=== PATIENT | female | born 1980 | race African-American/Black ===

== ENCOUNTER → 2019-06-04 | Outpatient (CLI) | payer BC, OTHER ==
[~2019-06-04] MED LIST: B12; CALCIUM; DEXL60CA5 PO; DIPH50CA; OMEP20CA6 PO; PANT40SU; PRD20T PO; RANI-10 PO; YAZ PO
--- NOTE | 2019-06-04 13:27 | Diagnostic Imaging Report ---
INDICATION: Routine screening. COMPARISON: No prior mammograms are available for comparison. This is a baseline mammogram. TECHNIQUE: 2-D and 3-D bilateral screening mammography was performed. The current study was also evaluated with a Computer Aided Detection (CAD) system. 3-D tomosynthesis was also performed and reviewed. FINDINGS: Both breasts are heterogeneously dense, limiting the sensitivity of mammography. No mass or malignant-appearing microcalcifications are seen. Axillae are unremarkable. IMPRESSION: No mammographic features suspicious for malignancy are identified. ACR BI-RADS Category 1: Negative. Result letter will be mailed to the patient. Note: At least 10% of breast cancer is not imaged by mammography. Dictated by: Dictated on workstation # [id number]
== END ==
LOC: RAD 10:36
PROVIDERS: ATTEND Nurse Practitioner Family
DX: Z12.31 Encounter for screening mammogram for malignant neoplasm of breast (principal)
CPT/HCPCS: 77067

== ENCOUNTER 2021-05-07 06:37 | Outpatient (CLI) | payer BC ==
[~2021-05-07] VITALS: Ht 157.5 cm; Wt 61.0 kg
== END 2021-05-07 10:05 ==
LOC: PREOP 06:37
PROVIDERS: ATTEND Surgery
DX: Z01.818 Encounter for other preprocedural examination (principal)

== ENCOUNTER 2021-05-12 11:50 | Day surgery (SDC) | payer BC ==
[~2021-05-12] VITALS: Ht 157.5 cm; Wt 61.0 kg
[2021-05-12] MEDS ORDERED: LACTATED RINGERS 1,000 ML IV STA (11:57)
--- NOTE | 2021-05-12 12:02 | Progress Note-Pre Operative ---
Pre-Operative Progress Note H&P Reviewed The H&P was reviewed, patient examined and no changes noted. Date Seen by Provider: May 12, 2021 Time Seen by Provider: 12:02 Date H&P Reviewed: May 12, 2021 Time H&P Reviewed: 12:02 Pre-Operative Diagnosis: blood in stool JACQUES ALONSO DO May 12, 2021 12:02
[2021-05-12] MEDS ORDERED: LACTATED RINGERS 1,000 ML IV ONE (12:04)
[2021-05-12 12:16] VITALS: BP 145/94
[2021-05-12] MEDS ORDERED: MIDAZOLAM 2 MG/2 ML (VERSED) VIAL ONE (13:23)
[2021-05-12] MEDS ORDERED: PROPOFOL INJECTION 50 ML IV ONE ×2 (13:23→13:59)
[2021-05-12 14:25] VITALS: BP 99/59
[2021-05-12 14:30] VITALS: BP 98/59
--- NOTE | 2021-05-12 14:31 | Anesthesia-General Post-Op ---
MAC Patient Condition Mental Status/LOC: Same as Preop Cardiovascular: Satisfactory Nausea/Vomiting: Absent Respiratory: Satisfactory Pain: Controlled Complications: Absent Post Op Complications Complications None Follow Up Care/Instructions Patient Instructions None needed. Anesthesiology Discharge Order Discharge Order Patient is doing well, no complaints, stable vital signs, no apparent adverse anesthesia problems. No complications reported per nursing. HARDEEP DUNLAP CRNA May 12, 2021 14:30
[2021-05-12 14:35] VITALS: BP 106/69
[2021-05-12 15:15] VITALS: BP 110/70
--- NOTE | 2021-05-13 00:44 | OPERATIVE REPORT ---
DATE OF SERVICE: 05/12/2021 PREOPERATIVE DIAGNOSIS: Blood in stools. POSTOPERATIVE DIAGNOSES: Questionable mass in cecum with submucosal lipoma, colon polyps, healed posterior anal fissure. PROCEDURE: Colonoscopy with hot biopsy polypectomy x11. SURGEON: Marcelino Haas DO ANESTHESIA: Per PROJECT CONTROLLER. ESTIMATED BLOOD LOSS: None. COMPLICATIONS: None. INDICATIONS: The patient is a 41-year-old female with bright red blood per rectum. She understands risks and benefits of procedure and wished to proceed with procedure. Consent was signed in the chart. DESCRIPTION OF PROCEDURE: The patient was taken to endoscopy suite, placed in left lateral recumbent position. Timeout was performed. Digital rectal exam was performed noting the appearance of a healed posterior anal fissure. No palpable polyps, masses or ulcerations. Scope was inserted in the rectum, advanced all the way to the cecum. Prep was adequate. Scope was then slowly retracted back in the cecum where the appendiceal orifice appears to be a submucosal mass or lipoma. Had some difficulty visualizing this. Scope was then slowly retracted back and encountering a polyp in the ascending colon, which hot biopsy polypectomy was performed. Polyps some of them appeared to have ulceration within the center of them, but one in the ascending colon, which hot biopsy polypectomy was performed. Scope was then continuously retracted back into the transverse colon where there were 5 polyps, which were present, which hot biopsy polypectomies were performed. Scope was then continuously retracted back into the descending colon, which 2 polyps were present, which hot biopsy polypectomy was performed. Endoscope was then continuously slowly retracted back into the sigmoid colon where another 3 polyps present, which hot biopsy polypectomy was performed. Scope was then continuously retracted back into the rectum where it was retroflexed noting no other pathology. Scope was returned to its normal position, slowly withdrawn until completely removed. The patient tolerated procedure well without any complications. She was taken to recovery room in stable condition. RECOMMENDATIONS: The patient will follow up on biopsy results and see what pathology is. We would recommend repeat colonoscopy in 6 to 12 months, likely depending upon pathology. The patient also with a questionable mass in the cecum where a submucosal lipoma. We would recommend further evaluation with CT scan with rectal contrast for further evaluation. We will arrange this outpatient. Further recommendations pending results of pathology and CT scan. Job ID: [id number] DocumentID: [id number] Dictated Date: 05/12/2021 16:48:20 Mechanical Assembler Date: 05/13/2021 00:44:06 Dictated By: DO SEGUNDO GO
== END 2021-05-12 15:20 | disposition home or self-care (01) ==
LOC: ENDO 11:50
PROVIDERS: ATTEND Surgery
DX: K63.5 Polyp of colon (principal); K63.89 Other specified diseases of intestine; K52.9 Noninfective gastroenteritis and colitis, unspecified; K92.1 Melena; K21.9 Gastro-esophageal reflux disease without esophagitis; Z82.49 Family history of ischemic heart disease and other diseases of the circulatory system
CPT/HCPCS: 84703; 88305

== ENCOUNTER 2021-05-30 10:13 | Emergency (ER) | payer BC ==
[~2021-05-30] VITALS: Ht 154 cm; Wt 62.0 kg
--- NOTE | 2021-05-30 10:30 | ED Chest Pain ---
General Chief Complaint: Chest Pain Stated Complaint: CHEST TIGHTNESS Source: patient Exam Limitations: no limitations History of Present Illness Date Seen by Provider: May 30, 2021 Time Seen by Provider: 10:30 Initial Comments Patient is a 41-year-old female who presents to the emergency department today with a chief complaint of substernal chest discomfort. Patient states that she and her family member were out doing their daily brisk walk when she had a hill dden onset of a heavy pressure-like discomfort associated with feelings of wanting to faint. She states they walk every day about 2 miles a day and she has never had this before. She states she felt a little short of breath but not nauseous or sweaty. The pain did not radiate. She states when they slowed their walk down the pain improved. She states by the time she got home the pain recurred and it was "severe". She took 1 baby aspirin at home and decided to come to the emergency department for evaluation. Patient has no history of smoking, was not raised by smokers. Does not have a history of hypertension or any family history of early coronary artery disease. She recently underwent colonoscopy and was found to have a "mass" that was biopsied by Dr. Haas. Her follow-up appointment is Tuesday at 9:45 AM. She does not know pathology at this point. She continues to have occasional bloody stools. She denies recent prolonged immobility or travel. No swelling in her legs or pain in her calves. No recent febrile illnesses, shortness of breath cough. She is Covid vaccinated. All other review of systems reviewed and negative except as stated. Timing/Duration: 1 hour Severity/Quality: moderate, pressure Location: substernal Radiation: no radiation Activities at Onset: activity Prior CP/Workup: no prior chest pain, no prior cardiac workup ASA po SOILS ANALYST: Yes (one 81mg) Associated Symptoms: syncope (near syncopal) Allergies and Home Medications Allergies Coded Allergies: sod ferric gluc complex (Verified Allergy, Severe, HIVES, 01/08/13) HIVES, ABD PAIN, SOB sucrose (Verified Allergy, Severe, HIVES, 01/08/13) HIVES, ABD PAIN, SOB pantoprazole sodium (Verified Allergy, Intermediate, 06/22/12) swelling ranitidine HCl (Verified Allergy, Intermediate, 06/22/12) swelling Patient Home Medication List Home Medication List Reviewed: Yes No Active Prescriptions or Reported Meds Review of Systems Review of Systems Constitutional: see HPI EENTM: No Symptoms Reported Respiratory: SOA With Exertion Cardiovascular: Chest Pain Gastrointestinal: Other (occasional bloody stool) Genitourinary: No Symptoms Reported Musculoskeletal: no symptoms reported Skin: no symptoms reported Psychiatric/Neurological: No Symptoms Reported All Other Systems Reviewed Negative Unless Noted: Yes Past Wlfbwov-Frvwrz-Ygrwet Hx Immunizations Up To Date First/Initial COVID19 Vaccinat: YES Second COVID19 Vaccination Graham: YES Seasonal Allergies Seasonal Allergies: No Past Medical History Surgeries: Yes (ENDOSCOPY) Respiratory: No Cardiac: No Neurological: No Reproductive Disorders: No Genitourinary: No Gastrointestinal: No Gastroesophageal Reflux Musculoskeletal: No Endocrine: No HEENT: No Cancer: No Psychosocial: No Integumentary: No Blood Disorders: Yes (anemia) Family Medical History No Pertinent Family Hx Physical Exam Vital Signs Vital Signs - First Documented 05/30/21 10:15 Temp 36.3 Pulse 69 Resp 16 B/P (MAP) 138/91 (107) Pulse Ox 98 O2 Delivery Room Air Capillary Refill : Height, Weight, BMI Height: '" Weight: 100lbs. oz. 45.718154wy; 24.59 BMI Method:Stated General Appearance: No Apparent Distress, WD/WN HEENT: PERRL/EOMI Neck: Normal Inspection Respiratory: Lungs Clear, Normal Breath Sounds, No Accessory Muscle Use, No Respiratory Distress Cardiovascular: Regular Rate, Rhythm, Normal Peripheral Pulses Gastrointestinal: Non Tender, Soft Extremity: Normal Inspection, Normal Range of Motion, Non Tender, No Calf Tenderness Neurologic/Psychiatric: Alert, Oriented x3, No Motor/Sensory Deficits, Normal Mood/Affect Skin: Normal Color, Warm/Dry Progress/Results/Core Measures Results/Orders Lab Results Laboratory Tests Test 05/30/21 10:28 Range/Units White Blood Count 5.8 4.3-11.0 10^3/uL Red Blood Count 4.39 3.80-5.11 10^6/uL Hemoglobin 12.2 11.5-16.0 g/dL Hematocrit 37 35-52 % Mean Corpuscular Volume 85 80-99 fL Mean Corpuscular Hemoglobin 28 25-34 pg Mean Corpuscular Hemoglobin Concent 33 32-36 g/dL Red Cell Distribution Width 13.4 10.0-14.5 % Platelet Count 302 130-400 10^3/uL Mean Platelet Volume 10.7 9.0-12.2 fL Immature Granulocyte % (Auto) 0 % Neutrophils (%) (Auto) 31 L 42-75 % Lymphocytes (%) (Auto) 57 H 12-44 % Monocytes (%) (Auto) 10 0-12 % Eosinophils (%) (Auto) 1 0-10 % Basophils (%) (Auto) 1 0-10 % Neutrophils # (Auto) 1.8 1.8-7.8 10^3/uL Lymphocytes # (Auto) 3.3 1.0-4.0 10^3/uL Monocytes # (Auto) 0.6 0.0-1.0 10^3/uL Eosinophils # (Auto) 0.1 0.0-0.3 10^3/uL Basophils # (Auto) 0.0 0.0-0.1 10^3/uL Immature Granulocyte # (Auto) 0.0 0.0-0.1 10^3/uL Neutrophils % (Manual) 25 % Lymphocytes % (Manual) 56 % Monocytes % (Manual) 10 % Eosinophils % (Manual) 3 % Basophils % (Manual) 1 % Myelocytes % 1 % Atypical Lymphocytes 2 % Blast Cells 2 % Anisocytosis SLIGHT Macrocytosis SLIGHT Sodium Level 140 135-145 MMOL/L Potassium Level 3.6 3.6-5.0 MMOL/L Chloride Level 105 98-107 MMOL/L Carbon Dioxide Level 23 21-32 MMOL/L Anion Gap 12 5-14 MMOL/L Blood Urea Nitrogen 6 L 7-18 MG/DL Creatinine 0.68 0.60-1.30 MG/DL Estimat Glomerular Filtration Rate 114 BUN/Creatinine Ratio 9 Glucose Level 89 70-105 MG/DL Calcium Level 9.4 8.5-10.1 MG/DL Total Creatine Kinase 56 29-168 U/L Troponin I < 0.028 <0.028 NG/ML Smear Scan YES My Orders Orders - VARUN MCKEON MD Aspirin Chewable Tablet (Baby Aspirin Ch (05/31/21 09:00) Ed Iv/Invasive Line Start (05/30/21 10:41) Cbc With Automated Diff (05/30/21 10:41) Basic Metabolic Panel (05/30/21 10:41) Creatine Kinase (05/30/21 10:41) Troponin I (05/30/21 10:41) Chest 1 View, Ap/Pa Only (05/30/21 10:41) Ekg Tracing (05/30/21 10:41) Aspirin Chewable Tablet (Baby Aspirin Ch (05/30/21 11:10) Manual Differential (05/30/21 10:28) Troponin I (05/30/21 14:30) General/Regular (05/30/21 Lunch) Troponin I (05/30/21 14:36) Troponin I (05/30/21 14:37) Vital Signs/I&O 05/30/21 10:15 Temp 36.3 Pulse 69 Resp 16 B/P (MAP) 138/91 (107) Pulse Ox 98 O2 Delivery Room Air Progress Progress Note : Time: 13:15 Progress Note reevaluation of patient, resting comfortable, no immediate needs/concerns. chest discomfort completely resolved. awaiting repeat troponin to be drawn in 1 hour. patient asking to eat. will go ahead and order a lunch tray as I expect negative troponin and no trips to the pathology laboratory director. Initial ECG Impression Date: May 30, 2021 Initial ECG Impression Time: 10:28 Initial ECG Rate: 57 Initial ECG Rhythm: Normal Sinus Initial ECG Intervals: Normal Initial ECG Impression: Nonspecific Changes (anterior/inferior) Departure Impression Primary Impression: Chest pain Qualified Codes: R07.9 - Chest pain, unspecified Disposition: 01 HOME, SELF-CARE Condition: Stable Departure-Patient Inst. Decision time for Depature: 14:38 Referrals: [facility] [place],LOCAL PHYSICIAN (PCP) Primary Care Physician Patient Instructions: Chest Pain That Is Not Caused by the Heart (DC), LOCAL PHYSICIAN LIST Add. Discharge Instructions: You can try some over the counter Tums for any chest discomfort/pressure that recurs. Also if you have recurrent "heartburn" type symptoms, you can start taking an over the counter acid certified neurodiagnostic technologist such as prilosec or pepcid. please keep your appointment with Dr Haas for Tuesday. Come back to the Emergency Department if you develop any new, concerning or emergent symptoms. Scripts No Active Prescriptions or Reported Meds VARUN MCKEON MD May 30, 2021 10:30
[2021-05-30 10:49] LABS: BASOPHILS % (AUTO) 1 % (0-10); EOSINOPHILS # (AUTO) 0.1 10^3/uL (0.0-0.3); EOSINOPHILS % (AUTO) 1 % (0-10); HEMATOCRIT 37 % (35-52); HEMOGLOBIN 12.2 g/dL (11.5-16.0); LYMPHOCYTES # (AUTO) 3.3 10^3/uL (1.0-4.0); LYMPHOCYTES % (AUTO) 57 % (12-44); MEAN CORPUSCULAR HEMOGLOBIN 28 pg (25-34); MEAN CORPUSCULAR HGB CONC 33 g/dL (32-36); MEAN CORPUSCULAR VOLUME 85 fL (80-99); MEAN PLATELET VOLUME 10.7 fL (9.0-12.2); MONOCYTES # (AUTO) 0.6 10^3/uL (0.0-1.0); MONOCYTES % (AUTO) 10 % (0-12); NEUTROPHILS # (AUTO) 1.8 10^3/uL (1.8-7.8); NEUTROPHILS % (AUTO) 31 % (42-75); PLATELET COUNT 302 10^3/uL (130-400); WHITE BLOOD COUNT 5.8 10^3/uL (4.3-11.0)
[2021-05-30 10:52] LABS: CHLORIDE 105 MMOL/L (98-107); POTASSIUM 3.6 MMOL/L (3.6-5.0); SODIUM 140 MMOL/L (135-145)
[2021-05-30 10:53] LABS: CALCIUM 9.4 MG/DL (8.5-10.1); GLUCOSE 89 MG/DL (70-105); SMEAR SCAN COMMENT YES
[2021-05-30 10:55] LABS: CARBON DIOXIDE 23 MMOL/L (21-32)
[2021-05-30 10:57] LABS: CREATININE SERUM 0.68 MG/DL (0.60-1.30); GFR ESTIMATED 114
[2021-05-30 10:58] LABS: BUN/CREATININE RATIO 9
[2021-05-30 11:00] LABS: CREATINE KINASE 56 U/L (29-168)
[2021-05-30] MEDS ORDERED: ASPIRIN 81 MG CHEW (CHILDREN'S ASA) ONE (11:10)
--- NOTE | 2021-05-30 11:18 | Diagnostic Imaging Report ---
INDICATION: Chest pain today. TECHNIQUE: Single view chest 11:19 AM. CORRELATION STUDY: None FINDINGS: The heart size, mediastinal configuration and pulmonary vascularity are within normal limits. The lungs are clear with no consolidating infiltrate. There is no significant effusion or pneumothorax. IMPRESSION: 1. Negative for acute abnormality of the chest. Dictated by: Dictated on workstation # [id number]
[2021-05-30 11:22] LABS: ANISOCYTOSIS SLIGHT; ATYPICAL LYMPHOCYTES 2 %; BASOPHILS % (MANUAL) 1 %; BLAST CELLS 2 %; EOSINOPHILS % (MANUAL) 3 %; LYMPHOCYTES % (MANUAL) 56 %; MONOCYTES % (MANUAL) 10 %; MYELOCYTES % 1 %; NEUTROPHILS % (MANUAL) 25 %
[2021-05-30 15:20] VITALS: BP 128/79
[2021-05-31] MEDS ORDERED: ASPIRIN 81 MG CHEW (CHILDREN'S ASA) PO SCH (09:00)
== END 2021-05-30 15:20 | disposition home or self-care (01) ==
LOC: EDUNIT# 10:13 → ER 10:15
DX: R07.9 Chest pain, unspecified (principal)
CPT/HCPCS: 36415; 71045; 80048; 82550; 84484; 85007; 85027; 93005

== ENCOUNTER → 2021-06-02 | Outpatient (CLI) | payer BC ==
[~2021-06-02] MED LIST changes: +DIATRIZOATE MEGLUM/SODIUM 37% 120 ML (GASTROGRAFIN) PO ONE
--- NOTE | 2021-06-02 10:18 | Diagnostic Imaging Report ---
EXAMINATION: CT abdomen and pelvis without contrast. TECHNIQUE: Multiple contiguous axial images were obtained through the abdomen and pelvis without the use of intravenous contrast. All CT scans use one or more of the following dose optimizing techniques: automated exposure control, MA and/or KvP adjustment based on patient size and exam type or iterative reconstruction. HISTORY: Rectal mass COMPARISON: None available. FINDINGS: Limited views of the lower thorax are unremarkable. The liver is normal without focal lesion. There is no biliary ductal dilation. Gallbladder is normal. Pancreas is normal. Spleen is normal. Adrenal glands are normal. The kidneys are normal. There is no hydronephrosis. Urinary bladder is normal. A rectal tube was placed and rectal contrast was administered. Filling defect in the rectum may represent the reported history of a mass versus stool. There are numerous filling defects throughout the colon making further evaluation of polyps or masses not possible. Incidental note is made of a dilated appendix measuring 15 mm with bulging of the appendiceal orifice. There is no surrounding stranding or fluid. There is no evidence for bowel obstruction or inflammation. No free fluid or air. No abdominal or pelvic lymphadenopathy. Aorta is normal in caliber without aneurysm. There are no suspicious osseus lesions. IMPRESSION: 1. Rectal contrast was administered and shows filling defects throughout the colon likely representing stool. Evaluation for additional polyps or masses is not possible due to the amount of stool in the colon. 2. Incidental note is made of a dilated appendix with bulging of the appendiceal orifice with no surrounding stranding or inflammation. 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 Dictated by: Dictated on workstation # [id number]
== END ==
LOC: RAD 09:45
PROVIDERS: ATTEND Surgery
DX: K62.89 Other specified diseases of anus and rectum (principal); K38.8 Other specified diseases of appendix
CPT/HCPCS: 74176

== ENCOUNTER 2021-06-04 23:49 | Emergency (ER) | payer BC ==
[~2021-06-04 23:49] MED LIST changes: -DIATRIZOATE MEGLUM/SODIUM 37% 120 ML (GASTROGRAFIN) PO ONE
[2021-06-05] MEDS ORDERED: methylPREDNISolone 125 MG (Solu-MEDROL) VIAL ONE (00:03)
[2021-06-05] MEDS ORDERED: methylPREDNISolone 125 MG (Solu-MEDROL) VIAL IV STA (00:04)
--- NOTE | 2021-06-05 00:14 | ED General ---
General Chief Complaint: Allergic Reaction Stated Complaint: ALLERGIC RXN Source of Information: Patient Exam Limitations: No Limitations (YOUNG ANDRE MD) History of Present Illness Date Seen by Provider: Jun 04, 2021 Time Seen by Provider: 23:57 Initial Comments Here with report of swelling of the upper lip. This started as a bump at about 5 PM and then worsened slightly. She took 2 Benadryl tabs at 9 PM. She subsequently had increased swelling of the upper lip. Of note she is on her second day of starting treatment for hypertension with lisinopril. She has never had treatment for blood pressure before. She had a similar reaction with ranitidine. Denies swelling of the tongue or breathing problems. She took the lisinopril this morning. Denies nausea, vomiting, weakness or stomach upset. Timing/Duration: 4-6 Hours Severity: Moderate Modifying Factors: worse with Medication Associated Systoms: No Cough, No Fever/Chills, No Headaches, No Nausea/Vomiting, No Shortness of Air, No Weakness (YOUNG ANDRE MD) Allergies and Home Medications Allergies Coded Allergies: ELTON Inhibitors (Verified Allergy, Severe, Angioedema, 06/05/21) sod ferric gluc complex (Verified Allergy, Severe, HIVES, 01/08/13) HIVES, ABD PAIN, SOB sucrose (Verified Allergy, Severe, HIVES, 01/08/13) HIVES, ABD PAIN, SOB pantoprazole sodium (Verified Allergy, Intermediate, 06/22/12) swelling ranitidine HCl (Verified Allergy, Intermediate, 06/22/12) swelling Patient Home Medication List Home Medication List Reviewed: Yes (YOUNG ANDRE MD) No Active Prescriptions or Reported Meds Review of Systems Review of Systems Constitutional: see HPI; No chills, No fever EENTM: mouth swelling (Upper lip); No throat pain, No throat swelling Respiratory: No cough, No short of breath, No wheezing Cardiovascular: no symptoms reported Gastrointestinal: see HPI Genitourinary: no symptoms reported Musculoskeletal: no symptoms reported Skin: see HPI; No pruritus, No rash; other (Swelling of the upper lip.) (YOUNG ANDRE MD) All Other Systems Reviewed Negative Unless Noted: Yes (YOUNG ANDRE MD) Past Iwkmtwm-Qqtqaf-Gtieoc Hx Patient Social History Tobacco Use?: No Use of E-Cig and/or Vaping dev: No Substance use?: No Alcohol Use?: Yes Alcohol Frequency: Once in a while (YOUNG ANDRE MD) Immunizations Up To Date First/Initial COVID19 Vaccinat: YES Second COVID19 Vaccination Graham: 12/31 (YOUNG ANDRE MD) Seasonal Allergies Seasonal Allergies: No (YOUNG ANDRE MD) Past Medical History Surgeries: Yes (ENDOSCOPY) Respiratory: No Cardiac: No Neurological: No Reproductive Disorders: No Genitourinary: No Gastrointestinal: No Gastroesophageal Reflux Musculoskeletal: No Endocrine: No HEENT: No Cancer: No Psychosocial: No Integumentary: No Blood Disorders: Yes (anemia) (YOUNG ANDRE MD) Family Medical History Reviewed Nursing Family Hx (YOUNG ANDRE MD) No Pertinent Family Hx (YOUNG ANDRE MD) Physical Exam Vital Signs Vital Signs - First Documented 06/04/21 23:55 Temp 36.1 Pulse 72 Resp 16 B/P (MAP) 147/93 (111) Pulse Ox 98 O2 Delivery Room Air (CARLTON PAVON MD) Vital Signs Capillary Refill : (YUONG ANDRE MD) Height, Weight, BMI Height: '" Weight: 100lbs. oz. 45.612295tl; 26.00 BMI Method:Stated General Appearance: No Apparent Distress, WD/WN HEENT: PERRL/EOMI, Pharynx Normal, Other (Upper lip swollen bilateral. No involvement of the tongue or pharynx noted.) Neck: Non Tender, Supple Respiratory: Lungs Clear, Normal Breath Sounds Cardiovascular: Regular Rate, Rhythm, No Murmur Gastrointestinal: Non Tender, Soft Extremity: Normal Range of Motion, Non Tender Neurologic/Psychiatric: Alert, Oriented x3 Skin: Normal Color, Warm/Dry (YOUNG ANDRE MD) Progress/Results/Core Measures Suspected Sepsis SIRS Temperature: Pulse: Respiratory Rate: Blood Pressure / Mean: (YOUNG ANDRE MD) Results/Orders My Orders Orders - CARLTON PAVON MD Tranexamic Acid Injection (Cyklokapron I (06/05/21 02:30) (CARLTON PAVON MD) Medications Given in ED Current Medications Medications Dose Ordered Sig/Sarita Route Start Time Stop Time Status Last Admin Dose Admin Methylprednisolone Sodium Succinate 125 mg STK-MED ONCE .ROUTE 06/05/21 00:03 06/05/21 00:05 DC 06/05/21 00:06 125 MG Tranexamic Acid 1000 mg/Sodium Chloride 110 ml @ 330 mls/hr ONCE ONCE IV 06/05/21 02:30 06/05/21 02:50 DC 06/05/21 02:25 330 MLS/HR (CARLTON PAVON MD) Vital Signs/I&O 06/04/21 06/04/21 06/05/21 23:55 23:55 04:03 Temp 36.1 36.1 Pulse 72 67 Resp 16 16 B/P (MAP) 147/93 (111) 128/84 Pulse Ox 98 98 O2 Delivery Room Air Room Air Room Air (CARLTON PAVON MD) Vital Signs/I&O Capillary Refill : (YOUNG ANDRE MD) Progress Note : Progress Note Seen and evaluated. IV established. Placed on monitor. Airway evaluated and shows no swelling. Appears to have ELTON inhibitor angioedema. We will initiate Solu-Medrol 125 mg IV and monitor patient. She is already had 50 mg of Benadryl 3 hours ago. Patient is allergic to ranitidine so we will hold famotidine. No indication for epinephrine at this point. We will monitor the patient to see if she has some resolution with time. This was discussed with the patient who agreed. Monitor patient. (YOUNG ANDRE MD) Progress Note : Time: 04:11 Progress Note I assumed care of this patient from Dr. Andre at 0030. She was stable at that time and had no airway or tongue involvement. She was monitored for a few hours and exhibited some slight increase in edema of the upper lip. There were still no involvement of the tongue, throat, or airway. At this point we elected to administer 1 g of tranexamic acid after discussing this therapy option with the patient. She has no history of clotting problems such as DVT or PE, and she felt comfortable receiving the TXA therapy. At 0400 she was exhibiting slight improvement in the lip swelling. There was still no tongue, throat, or airway involvement. Patient [place] [facility] in [facility] and feels comfortable returning home at this point. She has experienced with angioedema as she has had angioedema twice previously with Zantac. We discussed the need to avoid ELTON inhibitors in the future and list ELTON inhibitor's as an allergy. See discharge instructions for further discussion. 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 Decision time for Depature: 03:59 (CARLTON PAVON MD) Referrals: NO,LOCAL PHYSICIAN (PCP/Family) Primary Care Physician Patient Instructions: Angioedema Add. Discharge Instructions: Please return to the emergency room immediately or call 911 if you have worsening of your swelling that involves the tongue, throat, airway, or breathing. Never take any medication in the angiotensin converting enzyme inhibitor (ELTON inhibitor) category. This includes all of the medications that and in "-pril" such as lisinopril, enalapril, etc. Always list ELTON inhibitors as an allergy causing angioedema in your future healthcare encounters. Call with any questions or concerns. All discharge instructions reviewed with patient and/or family. Voiced understanding. Scripts No Active Prescriptions or Reported Meds YOUNG ANDRE MD Jun 05, 2021 00:14 CARLTON PAVON MD Jun 05, 2021 04:02
[2021-06-05] MEDS ORDERED: TRANEXAMIC ACID INJECTION 1,000 MG in NS (IVPB) 100 ML IV ONE (02:30)
[2021-06-05 04:03] VITALS: BP 128/84
== END 2021-06-05 04:17 | disposition home or self-care (01) ==
LOC: EDUNIT# 23:49 → ER 23:52
DX: T78.3XXA Angioneurotic edema, initial encounter (principal); I10 Essential (primary) hypertension; K21.9 Gastro-esophageal reflux disease without esophagitis
CPT/HCPCS: 96365

== ENCOUNTER 2021-06-24 07:02 | Outpatient (CLI) | payer BC ==
[~2021-06-24] VITALS: Ht 157.5 cm; Wt 58.9 kg
== END 2021-06-25 11:52 | disposition home or self-care (01) ==
LOC: PREOP 07:02
PROVIDERS: ATTEND Surgery
DX: Z01.818 Encounter for other preprocedural examination (principal)

== ENCOUNTER 2021-07-02 07:26 | Day surgery (SDC) | payer BC ==
[~2021-07-02] VITALS: Ht 157.5 cm; Wt 58.9 kg
[2021-07-02] VITALS (11 sets, daily range): BP systolic 128–154; BP diastolic 78–101
[2021-07-02] MEDS ORDERED: ceFAZolin INJECTION 1,000 MG in WATER (STERILE) FOR INJECTION 10 ML IV ONE (07:30)
[2021-07-02] MEDS ORDERED: metroNIDAZOLE 500MG/100ML IVPB 100 ML IV ONE (07:30)
[2021-07-02] MEDS ORDERED: LIDOCAINE/EPI 1%-1:100,000 (XYLOCAINE) 20ML ONE (07:40)
[2021-07-02] MEDS: LACTATED RINGERS 1,000 ML IV PRN ×2 (07:52→09:15)
--- NOTE | 2021-07-02 07:57 | Progress Note-Pre Operative ---
Pre-Operative Progress Note H&P Reviewed The H&P was reviewed, patient examined and no changes noted. Date Seen by Provider: Jul 02, 2021 Time Seen by Provider: 07:56 Date H&P Reviewed: Jul 02, 2021 Time H&P Reviewed: 07:57 Pre-Operative Diagnosis: dilated appendix, possible mucocele JACQUES ALONSO DO Jul 02, 2021 07:57
[2021-07-02] MEDS ORDERED: proPOfol 200 MG/20 ML (DIPRIVAN) VIAL IV ONE (08:31)
[2021-07-02] MEDS ORDERED: LIDOCAINE PF 2% 5 ML (XYLOCAINE) VIAL ONE (08:31)
[2021-07-02] MEDS ORDERED: fentaNYL INJ 100 MCG/2 ML AMP ONE (08:31)
[2021-07-02] MEDS ORDERED: MIDAZOLAM 2 MG/2 ML (VERSED) VIAL ONE (08:32)
[2021-07-02] MEDS ORDERED: ROCURONIUM 10 MG/ML 5 ML SYRINGE IV ONE (09:25)
[2021-07-02] MEDS ORDERED: NEOSTIGMINE 3 MG/3 ML VIAL ONE (09:25)
[2021-07-02] MEDS ORDERED: GLYCOPYRROLATE 0.2 MG/ML (ROBINUL) 2 ML VIAL ONE (09:25)
[2021-07-02] MEDS ORDERED: SEVOFLURANE (ULTANE) 15 ML INHAL SOLN ONE (09:25)
[2021-07-02] MEDS ORDERED: ONDANSETRON 4 MG/2 ML (SDV) Z0FRAN ONE ×2 (09:26→10:03)
--- NOTE | 2021-07-02 09:36 | Progress Note-Post Operative ---
Post-Operative Progess Note Surgeon (s)/Director Of Advertising Sales (s) Surgeon JACQUES ALONSO DO Director Of Advertising Sales: Dr. Venegas to assist in retraction dissection and closure. Pre-Operative Diagnosis dilated appendix, possible mucocele Post-Operative Diagnosis dilated appendix Procedure & Operative Findings Date of Procedure 07/02/21 Procedure Performed/Findings laparoscopic partial cecectomy Anesthesia Type general Estimated Blood Loss Estimated blood loss (mL): minimal Specimens/Packing Specimens Removed appendix and partial cecum JACQUES ALONSO DO Jul 02, 2021 09:36
[2021-07-02] MEDS ORDERED: ACHD5005 PO (09:37)
[2021-07-02] MEDS ORDERED: DOCU-143 PO (09:37)
--- NOTE | 2021-07-02 09:37 | Discharge Inst-Simple/Standard ---
Discharge Inst-Standard Discharge Medications New, Converted or Re-Newed RX: Transmitted to Pharmacy Patient Instructions/Follow Up Plan of Care/Instructions/FU: 2 weeks Samina Activity as Tolerated: No Discharge Diet: Regular Diet Other Inst to Patient Follow up Appt: Make appointment for 2 week. Instructions: No lifting greater than 10 pounds. No strenuous activity. May shower in 24 hours, no tub bath or soaking. Use incentive spirometer at home as directed. No Smoking Skin/Wound Care: You have special glue over your incision that will fall off on it's own. Symptoms to Report: Appetite Changes, Extremity Discoloration, Numbness/Tingling, Swelling Increased, Bleeding Excessive, Eyesight Changes, Pain Increased, Urine Color Change, Constipation(Persistent), Fever over 101 degree F, Pain/Pressure in chest, Urinating Difficulty, Cough Up/Vomit Blood, Heart Beat Irreg/Pounding, Pain/Pressure in jaw, Vaginal Bleeding Increase, Cramps in feet or legs, Lightheadedness, Pain/Pressure in shoulder, Diarrhea(Persistent), Memory Changes Suddenly, Questions/Concerns, Weight gain consecutive days, Dizziness/Fainting, Nausea/Vomiting, Shortness of Breath, Weight gain over 2 pounds If questions or concerns contact your physician Or seek help at emergency department. JACQUES ALONSO DO Jul 02, 2021 09:37
[2021-07-02] MEDS: fentaNYL INJ 100 MCG/2 ML AMP ONE ×2 (10:08→10:32)
[2021-07-02] MEDS ORDERED: ONDANSETRON 4 MG/2 ML (SDV) Z0FRAN IVP PRN (10:15)
[2021-07-02] MEDS ORDERED: fentaNYL INJ 100 MCG/2 ML AMP IVP ONE (10:15)
[2021-07-02] MEDS ORDERED: HYDROmorphone 2 MG/ML VIAL (DILAUDID) IV ONE (10:15)
--- NOTE | 2021-07-02 11:32 | OPERATIVE REPORT ---
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 PROCEDURE: Laparoscopic partial cecectomy. SURGEON: Marcelino Haas DO LIAISON OFFICER: Dr. Venegas, assisted in retraction, dissection and closure. ANESTHESIA: General. ESTIMATED BLOOD LOSS: Minimal. COMPLICATIONS: None. INDICATIONS: The patient is a 41-year-old female who had a colonoscopy, which had possible mass in the cecum visualized. She had a CT scan, which then demonstrated a CT scan with dilated appendix and possible mucocele at the cecum. The patient was recommended a partial cystectomy and all other indicated procedures so we could get pathological diagnosis. She understands risks and benefits and wishes to proceed. Consent was signed in the chart. DESCRIPTION OF PROCEDURE: The patient was taken to the operating suite, was prepped and draped in sterile fashion. Surgical pause was performed. Superior to the umbilicus, local anesthetic was infiltrated and 11 blade scalpel was used to make a small skin incision. Dissection was taken down to the fascia, which was then scored and opened. The abdomen was then entered. An 0 Vicryl was placed over in a [id number] fashion for closure at the end of the case. A balloon trocar was inserted, and pneumoperitoneum was achieved. Under direct visualization of the laparoscope, a 5 mm trocar was placed in the suprapubic region and the left lower quadrant. The appendix was then identified. It was dilated and appeared to be slightly extending into the cecum. The LigaSure was then used to divide the mesoappendix and start mobilizing the cecum. An Endo-ANJELICA 2.5 stapler was then used to transect partial of the cecum just proximal to the ileocecal valve. Once it was placed in an Endobag and removed through 12 mm trocar site. Abdomen was then inspected. No other pathology noted. The abdomen was then desufflated. Trocars were removed. The 0 Vicryl placed at the beginning of the case was then tied closing the 12 mm fascial defect. The skin was then closed using 4-0 Monocryl in a subcuticular fashion. The abdomen was washed and dried and Skin Affix was placed over the incisions. The patient tolerated procedure well without any complications, taken to recovery room in stable condition. Job ID: [id number] DocumentID: [id number] Dictated Date: 07/02/2021 09:42:07 Cut Off Operator Scorer Date: 07/02/2021 11:31:40 Dictated By: DO SEGUNDO GO
[2021-07-02] MEDS ORDERED: HYDROcodone/APAP 5 MG/325 MG (LORTAB) TAB PO ONE (11:45)
--- NOTE | 2021-07-02 14:16 | Anesthesia-General Post-Op ---
General Patient Condition Mental Status/LOC: Same as Preop Cardiovascular: Satisfactory Nausea/Vomiting: Absent Respiratory: Satisfactory Pain: Controlled Complications: Absent Post Op Complications Complications None Follow Up Care/Instructions Patient Instructions None needed. Anesthesia/Patient Condition Patient Condition Patient is doing well, no complaints, stable vital signs, no apparent adverse anesthesia problems. No complications reported per nursing. JODEE CORNEJO CRNA Jul 02, 2021 14:16
== END 2021-07-02 12:23 | disposition home or self-care (01) ==
LOC: SDC 07:26
PROVIDERS: ATTEND Surgery
DX: D12.1 Benign neoplasm of appendix (principal)
CPT/HCPCS: 84703; 87081

== ENCOUNTER → 2021-07-31 | Outpatient (CLI) | payer BC ==
[~2021-07-31] MED LIST changes: +ACHD5005 PO; +DOCU-143 PO
--- NOTE | 2021-07-31 11:39 | Diagnostic Imaging Report ---
PROCEDURE: CT abdomen and pelvis without contrast. TECHNIQUE: Multiple contiguous axial images were obtained through the abdomen and pelvis without the use of intravenous contrast. Auto Exposure Controls were utilized during the CT exam to meet ALARA standards for radiation dose reduction. INDICATION: Unspecified abdominal pain. Patient status post appendectomy one month ago. Comparison is made with prior CT from 06/02/2021. The lung bases are clear. Liver and gallbladder are unremarkable. The pancreas and spleen are unremarkable. No adrenal mass is detected. Kidneys are unremarkable. Aorta is nonaneurysmal. Postop changes from appendectomy are noted in the right lower quadrant. No fluid collection or abscess is identified. Bowel loops appear to be normal caliber. The uterus and bladder are unremarkable. No free air. No inflammatory changes are seen. IMPRESSION: Postoperative changes of appendectomy. No complicating features are identified. No acute features detected. Dictated by: Dictated on workstation # [id number]
== END ==
LOC: RAD 10:41
PROVIDERS: ATTEND Surgery
DX: R10.9 Unspecified abdominal pain (principal); Z90.49 Acquired absence of other specified parts of digestive tract
CPT/HCPCS: 74176

== ENCOUNTER → 2021-10-28 | Outpatient (CLI) | payer BC ==
--- NOTE | 2021-10-28 17:22 | Diagnostic Imaging Report ---
PROCEDURE: US Non-OB pelvis comp/trans. TECHNIQUE: Multiple real-time grayscale images were obtained of the pelvis in various projections endovaginally. Transabdominal imaging was also performed. INDICATION: Anemia. FINDINGS: The uterus measures 7.1 x 4.6 x 5.3 cm, retroverted, normal in size. The endometrial thickness is 8 mm, homogeneous and nonfocal. A 3.7 cm hypoechoic lesion with vascularity in the anterior uterine body is present as well as a similar 1.8 cm lesion eccentric to the right. Small fibroids are felt likely. No evidence for submucosal involvement. No pelvic free fluid. The ovaries and adnexa appeared normal. There is normal color Doppler blood flow. IMPRESSION: Probable uterine fibroids with no endometrial pathology. Normal ovaries and adnexa. No free fluid. Dictated by: Dictated on workstation # [id number]
--- NOTE | 2021-10-29 13:22 | Diagnostic Imaging Report ---
Bilateral screening mammogram. This study was compared to the prior exam of 06/04/2019. At this time there are no current complaints. The current study was also evaluated with a Computer Aided Detection (CAD) system. FINDINGS: The fibroglandular tissue in both breasts is dense. This does limit the sensitivity of this exam. Overall, there does not appear to have been any significant change when compared to the prior study. No primary or secondary sign of malignancy is noted. IMPRESSION: There is no radiographic evidence for malignancy. ACR category 1 ACR BI-RADS Category 1: Negative. Result letter will be mailed to the patient. Note: At least 10% of breast cancer is not imaged by mammography. Dictated by: Dictated on workstation # [id number]
== END ==
LOC: RAD 14:45
PROVIDERS: ATTEND Surgery
DX: Z12.31 Encounter for screening mammogram for malignant neoplasm of breast (principal); N93.8 Other specified abnormal uterine and vaginal bleeding
CPT/HCPCS: 76830; 76856; 77063; 77067

== ENCOUNTER 2022-04-01 19:34 | Emergency (ER) | payer BC ==
[~2022-04-01] VITALS: Ht 157.5 cm; Wt 62.0 kg
--- NOTE | 2022-04-01 20:02 | ED Chest Pain ---
General Chief Complaint: Respiratory Problems Stated Complaint: SOB, CHEST PRESSURE Nursing Triage Note: c/o soa/intermittant cp since 1734 Source: patient Exam Limitations: no limitations (CONCHA NAVARRO) History of Present Illness Date Seen by Provider: Apr 01, 2022 Time Seen by Provider: 20:00 Initial Comments Patient is a 42-year-old female who presents the ED with shortness of breath, dizziness and heart palpitations. Patient states symptoms started around 530 this evening while driving. Started having some dizziness and feeling short of breath. [place] like she was having difficulty catching her breath and may have had some heart palpitations. She states the chest pain was not sharp or felt like someone was set on her chest. No cough, fever, vomiting, diarrhea. She states she felt disoriented. Symptoms are improving. She Went home took 4 baby aspirin's around 615. History of hypertension. Denies history of coronary artery disease, CHF, asthma, COPD, smoking, diabetes, high cholesterol. No recent travels or surgeries. History of similar symptoms a year ago. Denies excessive caffeine use. Denies leg pain, leg swelling (CONCHA NAVARRO) Allergies and Home Medications Allergies Coded Allergies: ELTON Inhibitors (Verified Allergy, Severe, Angioedema, 06/05/21) sod ferric gluc complex (Verified Allergy, Severe, HIVES, 01/08/13) HIVES, ABD PAIN, SOB sucrose (Verified Allergy, Severe, HIVES, 01/08/13) HIVES, ABD PAIN, SOB pantoprazole sodium (Verified Allergy, Intermediate, 06/22/12) swelling ranitidine HCl (Verified Allergy, Intermediate, 06/22/12) swelling Patient Home Medication List Home Medication List Reviewed: Yes (CONCHA NAVARRO) Discontinued Medications Docusate Sodium (Colace) 100 Mg Capsule, 100 MG PO DAILY Discontinued Reason: No Longer Taking Prescribed by: JACQUES ALONSO on 07/02/21936 Last Action: Discontinued Hydrocodone/Acetaminophen (Hydrocodone-Acetamin 5-325 mg) 1 Each Tablet, 1 EACH PO Q4H PRN for PAIN-MODERATE (5-7) Discontinued Reason: No Longer Taking Prescribed by: JACQUES ALONSO on 07/02/21937 Last Action: Discontinued Review of Systems Review of Systems Constitutional: No chills, No diaphoresis, No malaise, No weakness EENTM: No Double Vision, No Eye Pain Respiratory: Denies Cough; Shortness of Air Cardiovascular: Chest Pain Gastrointestinal: Denies Diarrhea, Denies Nausea, Denies Vomiting Genitourinary: Denies Burning, Denies Discharge Musculoskeletal: No back pain, No joint pain Skin: No change in color, No change in hair/nails (CONCHA NAVARRO) All Other Systems Reviewed Negative Unless Noted: Yes (CONCHA NAVARRO) Past Dwzyypg-Aoidqg-Ecozyb Hx Patient Social History Tobacco Use?: No Substance use?: No Alcohol Use?: No Pt feels they are or have been: No (CONCHA NAVARRO) Immunizations Up To Date First/Initial COVID19 Vaccinat: DECEMBER 2020 Second COVID19 Vaccination Graham: DECEMBER 2020 Third COVID19 Vaccination Date: DECEMBER 2020 COVID19 Vaccine Floor Attendant: modernroxana (CONCHA NAVARRO) Seasonal Allergies Seasonal Allergies: No (CONCHA NAVARRO) Past Medical History Surgery/Hospitalization HX: MED HX: HTN Surgeries: Yes (COLONOSCOPY/EGD) Respiratory: No Currently Using CPAP: No Currently Using BIPAP: No Cardiac: No Heart Murmur Neurological: No Reproductive Disorders: No Genitourinary: No Gastrointestinal: Yes Gastroesophageal Reflux Musculoskeletal: No Endocrine: No HEENT: Yes (WEARS GLASSES) Loss of Vision: Denies Hearing Impairment: Denies Cancer: No Psychosocial: No Integumentary: No Blood Disorders: Yes (ANEMIA) (CONCHA NAVARRO) Family Medical History No Pertinent Family Hx (CONCHA NAVARRO) Physical Exam Vital Signs Vital Signs - First Documented 04/01/22 19:47 Temp 36.3 Pulse 73 Resp 16 B/P (MAP) 148/113 (125) Pulse Ox 98 O2 Delivery Room Air (BOBO GRIFFITHS MD) Vital Signs Capillary Refill : Less Than 3 Seconds (CONCHA NAVARRO) Height, Weight, BMI Height: '" Weight: 100lbs. oz. 45.305228hh; 24.00 BMI Method:Stated General Appearance: No Apparent Distress, WD/WN HEENT: PERRL/EOMI, TMs Normal, Normal ENT Inspection, Pharynx Normal Neck: Full Range of Motion, Normal Inspection, Non Tender, Supple Respiratory: Chest Non Tender, Lungs Clear, Normal Breath Sounds, No Accessory Muscle Use, No Respiratory Distress Cardiovascular: Regular Rate, Rhythm, No Edema, No Gallop, No JVD, No Murmur Gastrointestinal: Normal Bowel Sounds, No Organomegaly, No Pulsatile Mass, Non Tender, Soft Neurologic/Psychiatric: Alert, Oriented x3, No Motor/Sensory Deficits, Normal Mood/Affect, yarn carrier II-XII Norm as Tested Skin: Normal Color, Warm/Dry (CONCHA NAVARRO) Progress/Results/Core Measures Results/Orders Lab Results Laboratory Tests Test 04/01/22 20:04 Range/Units White Blood Count 7.1 4.3-11.0 10^3/uL Red Blood Count 4.68 3.80-5.11 10^6/uL Hemoglobin 12.7 11.5-16.0 g/dL Hematocrit 38 35-52 % Mean Corpuscular Volume 82 80-99 fL Mean Corpuscular Hemoglobin 27 25-34 pg Mean Corpuscular Hemoglobin Concent 33 32-36 g/dL Red Cell Distribution Width 13.2 10.0-14.5 % Platelet Count 289 130-400 10^3/uL Mean Platelet Volume 10.4 9.0-12.2 fL Immature Granulocyte % (Auto) 0 % Neutrophils (%) (Auto) 58 42-75 % Lymphocytes (%) (Auto) 35 12-44 % Monocytes (%) (Auto) 7 0-12 % Eosinophils (%) (Auto) 0 0-10 % Basophils (%) (Auto) 0 0-10 % Neutrophils # (Auto) 4.1 1.8-7.8 10^3/uL Lymphocytes # (Auto) 2.5 1.0-4.0 10^3/uL Monocytes # (Auto) 0.5 0.0-1.0 10^3/uL Eosinophils # (Auto) 0.0 0.0-0.3 10^3/uL Basophils # (Auto) 0.0 0.0-0.1 10^3/uL Immature Granulocyte # (Auto) 0.0 0.0-0.1 10^3/uL Prothrombin Time 13.0 12.2-14.7 SEC INR Comment 1.0 0.8-1.4 Activated Partial Thromboplast Time 29 24-35 SEC Sodium Level 143 135-145 MMOL/L Potassium Level 3.8 3.6-5.0 MMOL/L Chloride Level 104 98-107 MMOL/L Carbon Dioxide Level 21 21-32 MMOL/L Anion Gap 18 H 5-14 MMOL/L Blood Urea Nitrogen 6 L 7-18 MG/DL Creatinine 0.73 0.60-1.30 MG/DL Estimat Glomerular Filtration Rate 104 BUN/Creatinine Ratio 8 Glucose Level 100 70-105 MG/DL Calcium Level 9.8 8.5-10.1 MG/DL Corrected Calcium 9.4 8.5-10.1 MG/DL Magnesium Level 1.9 1.6-2.4 MG/DL Total Bilirubin 0.3 0.1-1.0 MG/DL Aspartate Amino Transf (AST/SGOT) 15 5-34 U/L Alanine Aminotransferase (ALT/SGPT) 16 0-55 U/L Alkaline Phosphatase 58 40-136 U/L Myoglobin 21.3 10.0-92.0 NG/ML Troponin I < 0.028 <0.028 NG/ML B-Type Natriuretic Peptide 11.2 <100.0 PG/ML Total Protein 8.2 6.4-8.2 GM/DL Albumin 4.5 3.2-4.5 GM/DL (BOBO GRIFFITHS MD) Vital Signs/I&O 04/01/22 04/01/22 19:47 21:31 Temp 36.3 36.4 Pulse 73 70 Resp 16 16 B/P (MAP) 148/113 (125) 147/97 Pulse Ox 98 99 O2 Delivery Room Air Room Air (BOBO GRIFFITHS MD) Blood Pressure Mean: 125 Comment Sinus rhythm, 65 bpm, QRS duration 90 MS, QTc 408 MS (CONCHA NAVARRO) Departure Communication (PCP) Patient with a heart score of 1. EKG sinus rhythm. No evidence of ST elevation or depression. No cardiac arrhythmia. Lab work was otherwise unremarkable. Troponin and BNP negative. No appreciated leg swelling or denies of any pain. No recent travels or surgeries. Chest x-ray was negative for pneumonia, pneumothorax. No pain with eating. She has no abdominal tenderness. Has been asymptomatic during her stay here. Due to her low heart score with no current symptoms during her stay patient will be discharged with outpatient follow-up with her primary care physician for further evaluation. Symptoms could be related to heart palpitations. She denies excessive caffeine use. Vital signs have been stable. If any worsening symptoms return back to ED for further evaluation. Patient agrees with plan of action. (CONCHA NAVARRO) Impression Primary Impression: Chest pain Disposition: 01 HOME, SELF-CARE Condition: Stable Departure-Patient Inst. Decision time for Depature: 20:44 (CONCHA NAVARRO) Referrals: [facility],LOCAL PHYSICIAN (PCP) Primary Care Physician JASMIN CURRIE JR, MD Patient Instructions: Chest Pain PHYSICIAN ATTESTATION NOTE: I was present in the ER while HEAD HOUSEKEEPER / PA saw the patient, but I was not involved in the care, exam, or management of the patient. (BOBO GRIFFITHS MD) CONCHA NAVARRO Apr 01, 2022 20:02 BOBO GRIFFITHS MD Apr 02, 2022 05:45
[2022-04-01 20:14] LABS: BASOPHILS % (AUTO) 0 % (0-10); EOSINOPHILS % (AUTO) 0 % (0-10); HEMATOCRIT 38 % (35-52); HEMOGLOBIN 12.7 g/dL (11.5-16.0); LYMPHOCYTES # (AUTO) 2.5 10^3/uL (1.0-4.0); LYMPHOCYTES % (AUTO) 35 % (12-44); MEAN CORPUSCULAR HEMOGLOBIN 27 pg (25-34); MEAN CORPUSCULAR HGB CONC 33 g/dL (32-36); MEAN CORPUSCULAR VOLUME 82 fL (80-99); MEAN PLATELET VOLUME 10.4 fL (9.0-12.2); MONOCYTES # (AUTO) 0.5 10^3/uL (0.0-1.0); MONOCYTES % (AUTO) 7 % (0-12); NEUTROPHILS # (AUTO) 4.1 10^3/uL (1.8-7.8); NEUTROPHILS % (AUTO) 58 % (42-75); PLATELET COUNT 289 10^3/uL (130-400); WHITE BLOOD COUNT 7.1 10^3/uL (4.3-11.0)
[2022-04-01 20:41] LABS: ALBUMIN 4.5 GM/DL (3.2-4.5); BILIRUBIN,TOTAL 0.3 MG/DL (0.1-1.0); CALCIUM 9.8 MG/DL (8.5-10.1); CREATININE SERUM 0.73 MG/DL (0.60-1.30); MAGNESIUM 1.9 MG/DL (1.6-2.4); POTASSIUM 3.8 MMOL/L (3.6-5.0); TOTAL PROTEIN 8.2 GM/DL (6.4-8.2)
--- NOTE | 2022-04-01 20:51 | Diagnostic Imaging Report ---
INDICATION: Chest pain. COMPARISON: 05/30/2021. FINDINGS: The lungs are clear. No failure, effusion or pneumothorax. IMPRESSION: No acute appearing abnormality. Dictated by: Dictated on workstation # [id number]
[2022-04-01 21:31] VITALS: BP 147/97
== END 2022-04-01 21:33 | disposition home or self-care (01) ==
LOC: EDUNIT# 19:34 → ER 19:36
DX: R07.9 Chest pain, unspecified (principal)
CPT/HCPCS: 36415; 71045; 80053; 83735; 83874; 83880; 84484; 85025; 85610; 85730; 93005; 93041

== ENCOUNTER 2022-09-30 12:34 | Day surgery (SDC) | payer BC ==
[2022-09-30] VITALS (7 sets, daily range): BP systolic 101–137; BP diastolic 58–96
[~2022-09-30] VITALS: Ht 162.6 cm; Wt 58.1 kg
[2022-09-30] MEDS ORDERED: LACTATED RINGERS 1,000 ML IV STA (12:38)
[2022-09-30] MEDS ORDERED: HURRICAINE EXT TUBE (BENZOCAINE) XX PRN (12:45)
--- NOTE | 2022-09-30 14:39 | Progress Note-Pre Operative ---
Pre-Operative Progress Note Date of Available H&P: Sep 10, 2022 Date H&P Reviewed: Sep 30, 2022 Time H&P Reviewed: 14:39 History & Physical: H&P Reviewed, Patient Examed, No changes noted Pre-Operative Diagnosis: hx gastric ulcer and colon polyps JACQUES ALONSO DO Sep 30, 2022 14:39
[2022-09-30] MEDS ORDERED: PROPOFOL INJECTION 50 ML IV ONE (14:59)
[2022-09-30] MEDS ORDERED: MIDAZOLAM 2 MG/2 ML (VERSED) VIAL ONE (14:59)
--- NOTE | 2022-09-30 15:37 | Anesthesia-General Post-Op ---
MAC Patient Condition Mental Status/LOC: Same as Preop Cardiovascular: Satisfactory Nausea/Vomiting: Absent Respiratory: Satisfactory Pain: Controlled Complications: Absent Post Op Complications Complications None Follow Up Care/Instructions Patient Instructions None needed. Anesthesiology Discharge Order Discharge Order Patient is doing well, no complaints, stable vital signs, no apparent adverse anesthesia problems. No complications reported per nursing. SANAM NIXON CRNA Sep 30, 2022 15:37
--- NOTE | 2022-09-30 15:50 | Discharge Inst-Simple/Standard ---
Discharge Inst-Standard Patient Instructions/Follow Up Plan of Care/Instructions/FU: Samina - 2 weeks Activity as Tolerated: Yes Discharge Diet: Regular Diet JACQUES ALONSO DO Sep 30, 2022 15:50
--- NOTE | 2022-10-01 02:03 | OPERATIVE REPORT ---
DATE OF SERVICE: 09/30/2022 PREOPERATIVE DIAGNOSES: History of gastric ulcer, history of polyps. POSTOPERATIVE DIAGNOSES: Hiatal hernia, descending colon polyp. PROCEDURE: EGD with biopsies, colonoscopy with hot biopsy polypectomy x1. SURGEON: Jacques Haas DO. ANESTHESIA: Per DATA PROCESSING CONSULTANT. ESTIMATED BLOOD LOSS: None. COMPLICATIONS: None. INDICATIONS: The patient is a 42-year-old female with history of gastric ulcer and also history of colon polyps. She understands the risks and benefits of procedure and wishes to proceed. Consent was signed and in the chart. DESCRIPTION OF PROCEDURE: The patient was taken to endoscopy suite, placed in left recumbent position. Timeout was performed. Scope was inserted in the mouth, down the esophagus, stomach and into the duodenum without difficulty. There were no polyps, masses or ulcerations within the duodenum. Scope was slowly retracted back to the stomach where it was further insufflated. No polyps, masses or ulcerations. Biopsy of the antrum was obtained. Scope was retroflexed noting small hiatal hernia. No other pathology. Scope was returned to its normal position and slowly withdrawn to the distal esophagus. No polyps, masses or ulcerations. Biopsies of the GE junction was obtained. The scope was slowly retracted out until completely removed, noting no other pathology. Digital rectal exam was performed. No palpable polyps mesh or ulcerations. Scope was inserted in the rectum and advanced all the way to the cecum with minimal difficulty. Prep was adequate. The ileocecal valve was intubated. Normal appearance of the terminal ileum, still slowly retracted back into the colon, no polyps, masses, ulcerations of the cecum, ascending, transverse colon and descending colon had a small polyp, which hot biopsy polypectomy was performed. The scope was then slowly retracted back. No polyps, masses, or ulcerations descending and sigmoid colon. Once in the rectum, scope was retroflexed. No other pathology. Scope was returned to its normal position and slowly withdrawn until completely removed. There was no other pathology. The patient tolerated the procedure well without any complications, taken to recovery room in stable condition. RECOMMENDATIONS: The patient will need repeat colonoscopy in 5 years, initially before that will be seen at that time. Await biopsy results. The patient will follow up in 2 weeks. Everytime before her next scheduled followup endoscopy she should be reevaluated at that time. Job ID: [id number] DocumentID: [id number] Dictated Date: 09/30/2022 22:03:59 Entry Level Recruiter Date: 10/01/2022 02:00:00 Dictated By: JACQUES HAAS DO
== END 2022-09-30 16:27 | disposition home or self-care (01) ==
LOC: ENDO 12:34
PROVIDERS: ATTEND Surgery
DX: Z12.11 Encounter for screening for malignant neoplasm of colon (principal); K63.5 Polyp of colon; K44.9 Diaphragmatic hernia without obstruction or gangrene; K29.50 Unspecified chronic gastritis without bleeding; Z85.09 Personal history of malignant neoplasm of other digestive organs; Z87.11 Personal history of peptic ulcer disease
CPT/HCPCS: 84703